=== PATIENT | male | born 1960 | race Hispanic/Latino ===

== ENCOUNTER 2020-09-25 14:18 | Outpatient (CLI) | payer OTHER ==
[2020-09-25] MEDS ORDERED: ALBUTEROL 2.5 MG/3 ML NEBU IH ONE (17:00)
== END 2020-09-25 14:19 | disposition home or self-care (01) ==
LOC: PF 14:18
PROVIDERS: ATTEND Internal Medicine
DX: R91.8 Other nonspecific abnormal finding of lung field (principal)
CPT/HCPCS: 94060; 94640; 94729